=== PATIENT | male | born 1965 | race Caucasian/White ===

== ENCOUNTER → 2019-06-21 | Outpatient (CLI) | payer OTHER | LOC: M LAB 13:01 | PROVIDERS: ATTEND Internal Medicine Pulmonary Disease | DX: J44.9 Chronic obstructive pulmonary disease, unspecified (principal) ==

== ENCOUNTER → 2020-03-24 | Outpatient (CLI) | payer OTHER ==
--- NOTE | 2020-03-24 13:55 | REP ---
INDICATION: PULMONARY EMBOLISM, XR 1ST NM 2ND COMPARISON: 03/08/2019 TECHNIQUE: PA and lateral. FINDINGS: The mediastinum and cardiac silhouette are normal. The lung gates are clear and without acute consolidation, effusion, or pneumothorax. The skeletal structures are intact and normal. IMPRESSION: No acute cardiopulmonary process. <Electronically signed by Juan Pablo Briggs > 03/24/20 1817
--- NOTE | 2020-03-24 14:52 | REP ---
INDICATION: PULMONARY EMBOLISM, XR 1ST NM 2ND. COMPARISON: CT angiogram chest 04/20/2019. TECHNIQUE/RADIOTRACER AND DOSE: Following the intravenous administration of 5.4 mCi technetium 99 M tagged MAA, in the inhalation of 1.0 mCi technetium 99 M DTPA aerosol, multiple images of the lungs are obtained in various projections. FINDINGS: There are multiple large matching ventilation and perfusion defects in the lower lungs bilaterally. I do not see any areas of V/Q mismatch. IMPRESSION: Multiple large matching ventilation and perfusion defects in the lower lungs. I would categorize this as an intermediate probability of pulmonary embolism. <Electronically signed by Pablo Love > 03/24/20 0125
== END ==
LOC: M RAD 13:11
PROVIDERS: ATTEND Internal Medicine Pulmonary Disease
DX: I26.99 Other pulmonary embolism without acute cor pulmonale (principal)
CPT/HCPCS: 71046; 78582; A9540; A9567

== ENCOUNTER → 2020-09-16 | Outpatient (CLI) | payer OTHER ==
--- NOTE | 2020-09-17 04:37 | REP ---
INDICATION: NICOTINE DEPENDENCE, CIGARETTES, W OTH DISORDERS COMPARISON: 04/23/2019 TECHNIQUE: Axial noncontrast images from the thoracic inlet to the upper abdomen using low-dose lung screening technique (LDCT). FINDINGS: Advanced COPD/emphysematous changes with bronchiectasis and scattered scarring as well as prominent somewhat nodular biapical scarring again noted. 1 cm nodular density in the right lower lobe and 1 cm part solid density in the left lower lobe remains stable compared to 2019. 5 mm noncalcified nodule in the anterior left upper lobe also remains stable. No new acute consolidation, significant nodule or mass. No effusion. No pneumothorax. IMPRESSION: COPD/emphysematous changes with chronic relatively stable parenchymal findings. No new acute consolidation, suspicious nodule or mass. Lung-RADS category 2. Management recommendations include annual low-dose CT surveillance. <Electronically signed by Juan Pablo Briggs > 09/17/20 [id number]
== END ==
LOC: M RAD 15:59
PROVIDERS: ATTEND Internal Medicine Pulmonary Disease
DX: J44.9 Chronic obstructive pulmonary disease, unspecified (principal); F17.218 Nicotine dependence, cigarettes, with other nicotine-induced disorders

== ENCOUNTER → 2021-03-19 | Outpatient (CLI) | payer OTHER ==
--- NOTE | 2021-03-19 14:11 | REP ---
INDICATION: OTH PUL EMBOLISM LAB 1ST XR 2ND NM3RD COMPARISON: 03/24/2020 TECHNIQUE: PA and lateral. FINDINGS: The mediastinum and cardiac silhouette are normal. The lung gates demonstrate chronic emphysematous changes without acute consolidation, effusion, or pneumothorax. The skeletal structures are intact and normal. IMPRESSION: No acute cardiopulmonary process. <Electronically signed by Juan Pablo Briggs > 03/19/21 [id number]
--- NOTE | 2021-03-19 14:53 | REP ---
INDICATION: OTH PUL EMBOLISM LAB 1ST XR 2ND NM3RD. COMPARISON: 03/24/2020 TECHNIQUE/RADIOTRACER AND DOSE: After the intravenous administration of 5.5 mCi of technetium 99 M MAA a perfusion lung study was performed. After the inhalation of 1 mCi of technetium 99 M DTPA aerosol a ventilation lung study was performed. FINDINGS: There is significant clumping of the radiotracer throughout the tracheobronchial system. Once again, there are multiple matching ventilation perfusion defects. There are no perfusion mismatches. IMPRESSION: Indeterminate probability for PE. CTA pulmonary arteries recommended. <Electronically signed by Paco Kelly > 03/19/21 [id number]
== END ==
LOC: M LAB 13:38
PROVIDERS: ATTEND Internal Medicine Pulmonary Disease
DX: I26.99 Other pulmonary embolism without acute cor pulmonale (principal)
CPT/HCPCS: 36415; 71046; 78582; 85379; A9540; A9567

== ENCOUNTER → 2021-10-15 | Outpatient (CLI) | payer OTHER ==
[~2021-10-15] MED LIST: ISOVUE-370 76% 100ML VIAL As Ordered ONE
== END ==
LOC: M RAD 13:42
PROVIDERS: ATTEND Internal Medicine Pulmonary Disease
DX: R91.8 Other nonspecific abnormal finding of lung field (principal); I25.10 Atherosclerotic heart disease of native coronary artery without angina pectoris
CPT/HCPCS: 71275; Q9967

== ENCOUNTER → 2022-04-14 | Outpatient (CLI) | payer OTHER | LOC: M RAD 08:32 | PROVIDERS: ATTEND Family Medicine | DX: R91.8 Other nonspecific abnormal finding of lung field (principal); F17.200 Nicotine dependence, unspecified, uncomplicated ==

== ENCOUNTER → 2023-04-27 | Outpatient (CLI) | payer OTHER | LOC: M RAD 14:42 | PROVIDERS: ATTEND Internal Medicine Pulmonary Disease | DX: Z12.2 Encounter for screening for malignant neoplasm of respiratory organs (principal); F17.218 Nicotine dependence, cigarettes, with other nicotine-induced disorders ==

== ENCOUNTER → 2024-06-04 | Outpatient (CLI) | payer OTHER | LOC: M RAD 12:43 | PROVIDERS: ATTEND Internal Medicine Pulmonary Disease | DX: Z12.2 Encounter for screening for malignant neoplasm of respiratory organs (principal); F17.218 Nicotine dependence, cigarettes, with other nicotine-induced disorders ==